=== PATIENT | male | born 1940 | race Caucasian/White ===

== ENCOUNTER → 2016-11-02 | Day surgery (SDC) | payer BC, MEDICARE ==
[~2016-11-02] VITALS: Ht 177.8 cm; Wt 75.0 kg
[~2016-11-02] MED LIST: BUPIVACAINE HCL PF 0.5% 30 ML VIAL ONE; CEPH-459 PO; FAMOTIDINE 20 MG/2 ML VIAL ONE; LACTATED RINGER'S 1000 ML INJ 1,000 ML ONE; LEVO88TA2 PO; LIDOCAINE HCL 2% 50 ML VIAL ONE; MIDAZOLAM HCL 2 MG/2 ML VIAL ONE; NEOMYCIN/POLYMYXIN 1 ML G.U. IRRIGANT IR ONE; NORC5TAB PO; PROPOFOL 200 MG/20 ML AMP IV ONE; TRIAMCINOLONE ACETONIDE 40 MG/ML VIAL I-SYNOVIAL ONE; ceFAZolin INJ 1,000 MG VIAL ONE
[2016-11-02 07:59] VITALS: BP 130/69; PULSE 64; RESP 16; TEMP 98.3; O2SAT 99
[2016-11-02 08:48] LABS: MEAN CELL VOLUME 93.3 FL (80.0-100.0); MEAN CORPUSCULAR HEMOGLOBIN 31.8 PG (27.0-34.0); MEAN CORPUSCULAR HGB CONC 34.1 % (32.0-36.0); PLATELET COUNT 143 TH/MM3 (150-450); RED BLOOD COUNT 4.93 MIL/MM3 (4.50-5.90); RED CELL DISTRIBUTION WIDTH 12.1 % (11.6-17.2); REVIEW FLAG FINAL; WHITE BLOOD COUNT 4.7 TH/MM3 (4.0-11.0)
[2016-11-02 11:05] VITALS: BP 120/69; PULSE 65; RESP 16; TEMP 98; O2SAT 99
--- NOTE | 2016-11-04 11:28 | EKG ---
Date Performed: 11/02/2016 Time Performed: 08:23:42 PTAGE: 75 years EKG: Sinus rhythm with PVC(s). Borderline ECG NO PREVIOUS TRACING DOCTOR: Leila Be Interpretating Date/Time 11/04/2016 11:25:52
--- NOTE | 2016-11-05 18:40 | MP ---
cc: BRENNAN MURPHY III, M.D. DATE OF SURGERY: 11/02/2016. PREOPERATIVE DIAGNOSIS: Bilateral carpal tunnel syndrome. POSTOPERATIVE DIAGNOSIS: Bilateral carpal tunnel syndrome. OPERATION: 1. Left open carpal tunnel release. 2. Right carpal tunnel steroid injection. SURGEON: Brennan Murphy III, MD. DESCRIPTION OF THE PROCEDURE IN DETAIL: The patient was brought to the operating room and placed supine on the operating table. after the correct site of surgery were verified by members of each team in the room multiple times including the patient myself and after adequate preoperative markings and preoperative written consent was verified and after adequate IV sedation had been achieved, the left upper extremity was prepped and draped in the traditional sterile surgical fashion. The limb was exsanguinated with an Aristeo wrap and a highly placed well-padded axillary tourniquet was inflated to 200 mmHg for a total of eleven (11) minutes. A longitudinally oriented incision within the skin crease was made at the base of palm and carried down through skin and subcutaneous tissue. Blunt dissection was then performed and the palmar fascia was retracted in opposite directions. The transverse carpal ligament was identified and divided in its midline from its proximal-most to its distal-most extents. The carpal tunnel contents were obviously under a lot of pressure and showed rebound. There was a hypertrophic tenosynovium but otherwise no mass effects or any other anatomic abnormalities identified. Thorough irrigation with saline was performed. The skin edges were reapproximated using running 4-0 nylon suture. The hand and arm were thoroughly cleansed and dried. Betadine and Adaptic dressing was applied atop the wound followed by a bulky soft dressing. The axillary tourniquet was released and the hand and all the fingers became immediately soft, pink and warm and had brisk capillary refill of less than 2 seconds. The patient was awakened from anesthesia and transported to the post-anesthesia care unit awake and in stable condition at the end of the case. Sponge, needle, instrument counts were correct at the end of the case as reported by nurses in the room. MD ANNY Brito III/DENAE /10:04 AM /6:36 PM
== END | disposition home or self-care (01) ==
LOC: PHSDC 06:04
PROVIDERS: ATTEND Orthopaedic Surgery Hand Surgery
DX: G56.03 Carpal tunnel syndrome, bilateral upper limbs (principal); R94.31 Abnormal electrocardiogram [ECG] [EKG]
CPT/HCPCS: 01810; 20526; 36415; 64721; 85027; 93005; J0690; J2250; J3010; J3301; J7120